=== PATIENT | male | born 1995 | race Caucasian/White ===

== ENCOUNTER 2021-07-10 21:11 | Emergency (ER) | payer SELFPAY ==
[~2021-07-10] VITALS: Ht 175.3 cm; Wt 99.0 kg
[2021-07-10 21:18] VITALS: BP 132/82
== END 2021-07-10 23:12 | disposition left against medical advice (07) ==
LOC: ER 21:11
DX: Z53.21 Procedure and treatment not carried out due to patient leaving prior to being seen by health care provider (principal)